=== PATIENT | male | born 1980 | race Caucasian/White ===

== ENCOUNTER 2018-05-08 17:40 | Emergency (ER) | payer MEDICAID ==
[~2018-05-08] VITALS: Ht 182.9 cm; Wt 90.7 kg
[2018-05-08 17:47] VITALS: BP 137/74
== END 2018-05-08 20:19 | disposition left against medical advice (07) ==
LOC: ER 17:45
DX: H57.11 Ocular pain, right eye (principal); Z53.21 Procedure and treatment not carried out due to patient leaving prior to being seen by health care provider

== ENCOUNTER 2018-05-09 03:44 | Emergency (ER) | payer SELFPAY ==
[~2018-05-09] VITALS: Ht 182.9 cm; Wt 90.7 kg
[2018-05-09 04:00] VITALS: BP 132/85
[2018-05-09] MEDS ORDERED: TETANUS-DIPTH-ACEL PERTUSSIS 0.5ML SYRG IM ONE (06:45)
[2018-05-09] MEDS ORDERED: TETRACAINE HCL 0.5% OPTH(EYE) SOLN 4ML RIGHTEYE ONE (06:45)
[2018-05-09] MEDS ORDERED: FLUORESCEIN SOD 1 MG TEST STRIP RIGHTEYE ONE (06:45)
== END 2018-05-09 07:05 | disposition home or self-care (01) ==
LOC: ER 03:44
DX: T15.01XA Foreign body in cornea, right eye, initial encounter (principal); F17.210 Nicotine dependence, cigarettes, uncomplicated; X58.XXXA Exposure to other specified factors, initial encounter; Y93.89 Activity, other specified; Y99.8 Other external cause status; Y92.89 Other specified places as the place of occurrence of the external cause
CPT/HCPCS: 65220; 90471; 90715

== ENCOUNTER 2019-10-25 00:40 | Emergency (ER) | payer MEDICAID ==
[~2019-10-25] VITALS: Ht 182.9 cm; Wt 102.1 kg
[2019-10-25 00:56] VITALS: BP 122/79
[2019-10-25 01:20] LABS: Basophils # (auto) 0 uL; Basophils % (auto) 0.6 % (0.0-2.0); Eosinophils # (auto) 0.2 uL; Eosinophils % (auto) 2.3 % (0.0-7.0); Hematocrit 43.1 % (41.0-53.0); Hemoglobin 14.4 g/dL (13.5-17.5); Lymphocytes # (auto) 2.3 uL; Lymphocytes % (auto) 27.1 % (10.0-50.0); Mean Corpuscular Hemoglobin 28.9 pg (28.0-32.0); Mean Corpuscular Hgb Conc. 33.3 g/dL (32.0-36.0); Mean Corpuscular Volume 86.6 fL (80.0-100.0); Monocytes # (auto) 0.9 uL; Monocytes % (auto) 10.2 % (0.0-12.0); Neutrophils % (auto) 59.8 % (37.0-80.0); Nucleated Red Blood Cells % 0.1 %; Platelet Count (auto) 293 10^3/uL (140-450); Red Blood Cells 4.98 10^6/uL (4.5-5.90); Red Cell Distribution Width 14.4 % (11.8-14.3); White Blood Cell 8.4 10^3/uL (4.4-10.8)
[2019-10-25 01:39] LABS: INR 1.01 (0.9-1.15); Partial Thromboplastin Time 28.3 sec (23.64-32.05)
[2019-10-25 01:41] LABS: Albumin 3.2 g/dL (3.4-5.0); Anion Gap 4 (5-15); Blood Urea Nitrogen 15 mg/dL (7-18); Calcium 8.4 mg/dL (8.5-10.1); Carbon Dioxide 28 mmol/L (21-32); Chloride 103 mmol/L (98-107); Glucose 94 mg/dL (74-106); Potassium 4.5 mmol/L (3.5-5.1); Sodium 135 mmol/L (136-145)
[2019-10-25 01:43] LABS: Alanine Aminotransferase 45 U/L (16-61); Aspartate Aminotransferase 16 U/L (15-37); GFR African American 117 mL/min; GFR Non-African American 97 mL/min
[2019-10-25 01:48] LABS: Alkaline Phosphatase 119 U/L (45-117); Bilirubin, Total 0.2 mg/dL (0.2-1.0); Total Protein 7.8 g/dL (6.4-8.2)
== END 2019-10-25 07:33 | disposition home or self-care (01) ==
LOC: ER 00:40
DX: R07.9 Chest pain, unspecified (principal); J45.909 Unspecified asthma, uncomplicated; F17.210 Nicotine dependence, cigarettes, uncomplicated
CPT/HCPCS: 36415; 71046; 80053; 83735; 83880; 84443; 84484; 85025; 85610; 85730; 93005